=== PATIENT | female | born 1995 | race Caucasian/White ===

== ENCOUNTER 2022-12-21 22:00 | Emergency (ER) | payer SELFPAY ==
[~2022-12-21] VITALS: Ht 167.6 cm; Wt 52.1 kg
[2022-12-21 22:40] VITALS: BP 130/95; PULSE 87; RESP 16; TEMP 97.8; O2SAT 100
[2022-12-21] MEDS ORDERED: METOCLOPRAMIDE HCL 10MG TABLET PO ONE (23:15)
[2022-12-21 23:18] LABS: BASOPHILS % 0.8 % (0.0-2.0); DIFFERENTIAL COMMENT 0; EOSINOPHILS % 1.6 % (0.0-5.0); HEMATOCRIT. 37.7 % (36.0-48.0); HEMOGLOBIN. 12.7 g/dL (12.0-16.0); MEAN CORPUSCULAR HEMOGLOBIN 31.2 pg (28.0-32.0); MEAN CORPUSCULAR HGB CONC 33.8 g/dL (31.0-37.0); MEAN CORPUSCULAR VOLUME 92.4 fL (81.0-99.0); MONOCYTES % 7.1 % (2.0-8.0); NEUTROPHILS % 70.5 % (40.0-76.0); PLATELET 186 x1000/uL (130-400); RED BLOOD CELL COUNT 4.08 mill/uL (4.2-5.4); WHITE BLOOD COUNT 8.4 x1000/uL (4.5-11.0)
[2022-12-21 23:32] LABS: CHLORIDE 105 mEq/L (98-107); INDEX HEMOLYSI 1 (1-3); INDEX ICTERIC 1 (1-4); INDEX LIPEMIC 1 (1-3); POTASSIUM 3.7 mEq/L (3.5-5.1); SODIUM 138 mEq/L (136-145)
[2022-12-21 23:42] LABS: ALANINE AMINOTRANSFERASE 29 IU/L (13-61); ALBUMIN 4.5 g/dL (3.4-5.0); ASPARTATE AMINOTRANSFERASE 17 IU/L (15-37); BILIRUBIN TOTAL 0.9 mg/dL (0.1-1.0); CARBON DIOXIDE 25 mEq/L (21-32); CREATININE 0.6 mg/dL (0.6-1.3); GLUCOSE 101 mg/dL (70-105); PROTEIN TOTAL 8.3 g/dL (6.0-8.3); UREA NITROGEN BLOOD 11 mg/dL (7-21)
[2022-12-22] MEDS ORDERED: ACET-2708 MT (00:14)
[2022-12-22] MEDS ORDERED: MECL-299 MT (00:14)
[2022-12-22] MEDS ORDERED: METO-293 MT (00:14)
== END 2022-12-22 00:34 | disposition home or self-care (01) ==
LOC: ER 22:54
DX: G43.909 Migraine, unspecified, not intractable, without status migrainosus (principal); R42 Dizziness and giddiness
CPT/HCPCS: 36415; 80053; 85025; 99283